=== PATIENT | female | born 1950 | race Asian ===

== ENCOUNTER 2025-07-01 11:59 | Emergency (ER) | payer MEDICARE, OTHER ==
[~2025-07-01] VITALS: Ht 149.9 cm; Wt 50.0 kg
[2025-07-01 12:05] VITALS: TEMP 97.7
[2025-07-01 12:55] VITALS: BP 153/82; PULSE 61; RESP 16; O2SAT 96
[2025-07-01 14:12] LABS: CALCIUM, TOTAL 9.0 mg/dL (8.8-10.5); CREATININE 0.54 mg/dL (0.60-1.30); GLOMERULAR FILTR. RATE CALC > 60 mL/min (>60); GLUCOSE,RANDOM 76 mg/dL (70-110); SODIUM SERUM 143 mmol/L (136-145); UREA NITROGEN, BLOOD 11 mg/dL (7-18)
[2025-07-01 14:16] LABS: PLATELET COUNT (AUTO) 309 K/uL (150-450); RED BLOOD CELL COUNT(AUTO) 4.47 MIL/uL (4.00-5.20); RED CELL DISTRIBUTION WIDTH 12.3 % (11.5-14.5); WHITE BLOOD COUNT (AUTO) 5.4 K/uL (4.5-11.0)
[2025-07-01 15:47] LABS: COVID AG,FIA SOURCE NASAL SWAB
[2025-07-01 15:53] LABS: APPEARANCE,URINE CLEAR (CLEAR); GLUCOSE, URINE (UA) NEGATIVE (NEGATIVE); LEUKOCYTE ESTERASE ,URINE NEGATIVE (NEGATIVE); NITRATE,URINE NEGATIVE (NEGATIVE); OCCULT BLOOD,URINE NEGATIVE (NEGATIVE); SPECIFIC GRAVITIY, URINE 1.009 (1.003-1.030)
[2025-07-01 16:05] LABS: SARS-COV2 (COVID) ANTIGEN,FIA Negative (Negative)
[2025-07-01 16:07] LABS: INFLUENZA TYPE A NEGATIVE FOR TYPE A (NEGATIVE); INFLUENZA TYPE B NEGATIVE FOR TYPE B (NEGATIVE)
[2025-07-01 16:12] LABS: SQUAMOUS EPITHELIAL CELL,UR Rare /LPF (None Seen)
== END 2025-07-01 16:59 | disposition home or self-care (01) ==
LOC: EMS 11:59
DX: R42 Dizziness and giddiness (principal); Z98.890 Other specified postprocedural states; Z20.822 Contact with and (suspected) exposure to COVID-19
CPT/HCPCS: 74018; 80048; 81001; 85025; 87804; 93005; 99285; 36415-L1; 36415-TC